=== PATIENT | male | born 1980 | race African-American/Black ===

== ENCOUNTER 2017-10-16 11:47 | Inpatient (IN) | payer SELFPAY ==
[~2017-10-16] VITALS: Ht 177.8 cm; Wt 78.8 kg
[~2017-10-16 11:47] MED LIST: HYDROCODONE-APA1 TAB PO; PANCRELIPASE 51 EACH PO; PROTONIX40 MG PO; ZOFRAN4 MG PO
[2017-10-16 13:17] LABS: BASOPHILS 0.1 % (0-2); EOSINOPHILS 0.7 % (0-7); HEMATOCRIT 40.7 % (42.0-54.0); HEMOGLOBIN 15.1 g/dL (13.5-17.5); IMMATURE GRANULOCYTES 0.4 % (0-5); LYMPHOCYTES 8.9 % (15-50); MCH 30.6 pg (26.0-34.0); MCHC 37.1 g/dL (31.0-37.0); MCV 82.6 fL (80.0-100.0); MEAN PLATELET VOLUME 9.1 fL (7.4-10.4); MONOCYTES 7.4 % (2-11); NEUTROPHILS 82.5 % (40-80); PLATELET COUNT 288 10x3/uL (130-400); RBC 4.93 10x6/uL (4.20-6.10); RDW 13.3 % (11.5-14.5); WBC 10.2 10x3/uL (4.8-10.8)
[2017-10-16 13:26] LABS: INR 1.13 (0.85-1.17)
[2017-10-16 13:34] LABS: ALBUMIN 4.2 g/dL (3.4-5.0); ALKALINE PHOSPHATASE 82 U/L (46-116); ALT (SGPT) 29 U/L (10-68); AMYLASE - SERUM 48 U/L (25-115); BILIRUBIN - TOTAL 0.73 mg/dL (0.2-1.3); CALC OSMOLALITY 285 mosm/kg (275-300); CALCIUM 8.8 mg/dL (8.5-10.1); CARBON DIOXIDE 32.7 mmol/L (21.0-32.0); CHLORIDE - SERUM 104 mmol/L (98-107); CREATININE - SERUM 1.2 mg/dL (0.6-1.3); GLUCOSE 97 mg/dL (74-106); LIPASE 107 U/L (73-393); MAGNESIUM - SERUM 1.8 mg/dL (1.8-2.4); POTASSIUM - SERUM 3.2 mmol/L (3.5-5.1); PROTEIN - SERUM 7.8 g/dL (6.4-8.2); SODIUM 144 mmol/L (136-145); UREA NITROGEN 11 mg/dL (7-18); eGFR NON AFRICAN AMERICAN 72 mL/min (90-120)
[2017-10-16 13:35] LABS: C-REACTIVE PROTEIN < 0.2 mg/dL (0.0-0.9)
[2017-10-16 15:48] LABS: APPEARANCE CLEAR (CLEAR); BILIRUBIN 1+ (NEGATIVE); COLOR YELLOW (YELLOW); GLUCOSE NEGATIVE (NEGATIVE); KETONE SMALL mg/dL (NEGATIVE); NITRITE NEGATIVE (NEGATIVE); PROTEIN TRACE mg/dL (NEGATIVE); SPECIFIC GRAVITY 1.015 (1.005-1.020)
[2017-10-16 15:49] LABS: WHITE CELLS - URINE 0-5 /hpf (0-5)
[2017-10-16 15:50] LABS: BACTERIA FEW /hpf (NONE SEEN); CALCIUM OXALATE CRYSTALS 0-5 /hpf (NONE SEEN); MUCUS <1+ /lpf (NONE SEEN); RED CELLS - URINE 0-5 /hpf (0-5)
[2017-10-16 18:33] LABS: UDS - AMPHET NEGATIVE QUAL (NEGATIVE); UDS - BARB NEGATIVE QUAL (NEGATIVE); UDS - BENZO NEGATIVE QUAL (NEGATIVE); UDS - COCAINE NEGATIVE QUAL (NEGATIVE); UDS - OPIATE POSITIVE QUAL (NEGATIVE); UDS - PCP NEGATIVE QUAL (NEGATIVE); UDS - THC POSITIVE QUAL (NEGATIVE)
[2017-10-16 22:48] VITALS: BP 127/77; BMI 27.3
[2017-10-17 01:35] VITALS: BP 139/88
[2017-10-17 05:06] LABS: BASOPHILS 0 % (0-2); EOSINOPHILS 0 % (0-7); HEMATOCRIT 37.8 % (42.0-54.0); HEMOGLOBIN 13.9 g/dL (13.5-17.5); IMMATURE GRANULOCYTES 0.3 % (0-5); MCHC 36.8 g/dL (31.0-37.0); MCV 81.5 fL (80.0-100.0); MEAN PLATELET VOLUME 9.5 fL (7.4-10.4); MONOCYTES 8.8 % (2-11); NEUTROPHILS 82.9 % (40-80); PLATELET COUNT 261 10x3/uL (130-400); RBC 4.64 10x6/uL (4.20-6.10); RDW 13.5 % (11.5-14.5)
[2017-10-17 05:26] LABS: WBC 7.4 10x3/uL (4.8-10.8)
[2017-10-17 05:50] VITALS: BP 153/78
[2017-10-17 06:22] LABS: ANION GAP 16.8 mmol/L (8-16); CALCIUM 8.4 mg/dL (8.5-10.1); CARBON DIOXIDE 26.5 mmol/L (21.0-32.0); CREATININE - SERUM 1.2 mg/dL (0.6-1.3); MAGNESIUM - SERUM 1.7 mg/dL (1.8-2.4); PHOSPHOROUS 2.9 mg/dL (2.5-4.9); POTASSIUM - SERUM 3.3 mmol/L (3.5-5.1)
[2017-10-17 08:25] VITALS: BP 102/53
[2017-10-17 09:32] VITALS: Ht 177.8 cm; Wt 78.8 kg
[2017-10-17 15:53] VITALS: BP 163/80
[2017-10-17 20:34] VITALS: BP 119/64
[2017-10-18 01:31] VITALS: BP 111/75
[2017-10-18 05:43] VITALS: BP 158/89
[2017-10-18 06:48] LABS: BASOPHILS 0.1 % (0-2); EOSINOPHILS 0 % (0-7); HEMATOCRIT 37.9 % (42.0-54.0); IMMATURE GRANULOCYTES 0.2 % (0-5); LYMPHOCYTES 9.5 % (15-50); MCH 30.2 pg (26.0-34.0); MCHC 36.9 g/dL (31.0-37.0); MCV 81.9 fL (80.0-100.0); MEAN PLATELET VOLUME 9.1 fL (7.4-10.4); MONOCYTES 9.8 % (2-11); NEUTROPHILS 80.4 % (40-80); PLATELET COUNT 237 10x3/uL (130-400); RBC 4.63 10x6/uL (4.20-6.10); RDW 13.4 % (11.5-14.5)
[2017-10-18 07:37] LABS: ALBUMIN 3.6 g/dL (3.4-5.0); ALKALINE PHOSPHATASE 67 U/L (46-116); ALT (SGPT) 25 U/L (10-68); CALC OSMOLALITY 280 mosm/kg (275-300); CARBON DIOXIDE 25.5 mmol/L (21.0-32.0); CHLORIDE - SERUM 106 mmol/L (98-107); CREATININE - SERUM 1.1 mg/dL (0.6-1.3); GLUCOSE 98 mg/dL (74-106); PROTEIN - SERUM 6.6 g/dL (6.4-8.2); SODIUM 141 mmol/L (136-145); UREA NITROGEN 12 mg/dL (7-18); eGFR NON AFRICAN AMERICAN 80 mL/min (90-120)
[2017-10-18 10:02] VITALS: BP 149/95
[2017-10-18 13:18] VITALS: BP 169/103
[2017-10-18 20:00] VITALS: BP 126/73
[2017-10-19 04:00] VITALS: BP 147/93
[2017-10-19 08:53] VITALS: BP 146/96
[2017-10-19 20:00] VITALS: BP 142/109
[2017-10-20] VITALS: BP 138/88
[2017-10-20 04:00] VITALS: BP 147/101
[2017-10-20 05:25] LABS: BASOPHILS 0.1 % (0-2); EOSINOPHILS 0.3 % (0-7); HEMATOCRIT 40.9 % (42.0-54.0); HEMOGLOBIN 15.4 g/dL (13.5-17.5); IMMATURE GRANULOCYTES 0.2 % (0-5); LYMPHOCYTES 16.2 % (15-50); MCH 30.3 pg (26.0-34.0); MCHC 37.7 g/dL (31.0-37.0); MCV 80.5 fL (80.0-100.0); MEAN PLATELET VOLUME 9.5 fL (7.4-10.4); MONOCYTES 14.3 % (2-11); NEUTROPHILS 68.9 % (40-80); PLATELET COUNT 232 10x3/uL (130-400); RBC 5.08 10x6/uL (4.20-6.10); RDW 12.8 % (11.5-14.5); WBC 10.8 10x3/uL (4.8-10.8)
[2017-10-20 05:45] LABS: CALC OSMOLALITY 271 mosm/kg (275-300); CALCIUM 7.9 mg/dL (8.5-10.1); CARBON DIOXIDE 24.7 mmol/L (21.0-32.0); CHLORIDE - SERUM 103 mmol/L (98-107); GLUCOSE 85 mg/dL (74-106); SODIUM 137 mmol/L (136-145); UREA NITROGEN 11 mg/dL (7-18)
[2017-10-20 05:55] LABS: CREATININE - SERUM 0.8 mg/dL (0.6-1.3); POTASSIUM - SERUM 3.3 mmol/L (3.5-5.1); eGFR NON AFRICAN AMERICAN > 90 mL/min (90-120)
[2017-10-20 07:59] VITALS: BP 161/112
[2017-10-20 11:48] VITALS: BP 148/101
[2017-10-20] MEDS ORDERED: NICODERM C1 PATCH .3 TRANSDERM ×2 (14:18→18:03)
[2017-10-20] MEDS ORDERED: PREVPAC PA1 COMB.PKG PO ×2 (18:01→18:13)
[2017-10-20] MEDS ORDERED: REGLAN5 MG PO ×2 (18:01→18:12)
== END 2017-10-20 18:38 | disposition home or self-care (01) | DRG 896 ==
LOC: D.ER 11:47 → D.EDHOLD 21:22 → D.M2 21:22
PROVIDERS: Emergency Medicine; Family Medicine; Internal Medicine Gastroenterology; Internal Medicine Nephrology; Nurse Practitioner Family
PROC: 0DB78ZX Excision of Stomach, Pylorus, Via Natural or Artificial Opening Endoscopic, Diagnostic (ICD-10-PCS; 2017-10-17)
PROC: 0DB58ZX Excision of Esophagus, Via Natural or Artificial Opening Endoscopic, Diagnostic (ICD-10-PCS; 2017-10-17)
PROC: 0DB98ZX Excision of Duodenum, Via Natural or Artificial Opening Endoscopic, Diagnostic (ICD-10-PCS; principal; 2017-10-17 10:46)
DX: F12.988 Cannabis use, unspecified with other cannabis-induced disorder (principal); K29.01 Acute gastritis with bleeding; K31.84 Gastroparesis; F17.203 Nicotine dependence unspecified, with withdrawal; G43.A0 Cyclical vomiting, in migraine, not intractable; K44.9 Diaphragmatic hernia without obstruction or gangrene; K76.89 Other specified diseases of liver; E87.6 Hypokalemia; K29.80 Duodenitis without bleeding; K21.0 Gastro-esophageal reflux disease with esophagitis; B96.81 Helicobacter pylori [H. pylori] as the cause of diseases classified elsewhere

== ENCOUNTER 2018-09-23 06:22 | Emergency (ER) | payer SELFPAY ==
[~2018-09-23] VITALS: Ht 177.8 cm; Wt 79.5 kg
[~2018-09-23 06:22] MED LIST changes: +NICODERM C1 PATCH .3 TRANSDERM; +PREVPAC PA1 COMB.PKG PO; +REGLAN5 MG PO
[2018-09-23 06:28] VITALS: Ht 177.8 cm; Wt 79.5 kg
[2018-09-23 07:09] LABS: ALBUMIN 3.9 g/dL (3.4-5.0); ALKALINE PHOSPHATASE 80 U/L (46-116); ALT (SGPT) 19 U/L (10-68); AMYLASE - SERUM 49 U/L (25-115); BILIRUBIN - TOTAL 0.54 mg/dL (0.2-1.3); CALC OSMOLALITY 281 mosm/kg (275-300); CARBON DIOXIDE 29.7 mmol/L (21.0-32.0); CHLORIDE - SERUM 104 mmol/L (98-107); CREATININE - SERUM 1.2 mg/dL (0.6-1.3); GLUCOSE 97 mg/dL (74-106); LIPASE 147 U/L (73-393); POTASSIUM - SERUM 3.5 mmol/L (3.5-5.1); PROTEIN - SERUM 7.4 g/dL (6.4-8.2); SODIUM 141 mmol/L (136-145); UREA NITROGEN 14 mg/dL (7-18); eGFR NON AFRICAN AMERICAN 72 mL/min (90-120)
[2018-09-23 07:12] LABS: TROPONIN-I < 0.017 ng/mL (0.000-0.060)
[2018-09-23 07:15] LABS: CALCIUM 8.6 mg/dL (8.5-10.1)
[2018-09-23 07:29] LABS: BASOPHILS 0.3 % (0-2); EOSINOPHILS 3.2 % (0-7); HEMATOCRIT 40.2 % (42.0-54.0); HEMOGLOBIN 15.3 g/dL (13.5-17.5); IMMATURE GRANULOCYTES 0.1 % (0-5); LYMPHOCYTES 32.1 % (15-50); MCH 31.3 pg (26.0-34.0); MCHC 38.1 g/dL (31.0-37.0); MCV 82.2 fL (80.0-100.0); MEAN PLATELET VOLUME 9.3 fL (7.4-10.4); NEUTROPHILS 53.3 % (40-80); RBC 4.89 10x6/uL (4.20-6.10); RDW 13.9 % (11.5-14.5); WBC 7.2 10x3/uL (4.8-10.8)
[2018-09-23 07:31] LABS: PLATELET COUNT 294 10x3/uL (130-400)
[2018-09-23] MEDS ORDERED: ZANTAC300 MG PO (08:37)
[2018-09-23] MEDS ORDERED: ZOFRAN ODT4 MG/UDTAB PO (08:37)
[2018-09-23] MEDS ORDERED: LEVSIN/ANASP0.125 MG PO (08:37)
[2018-09-23 10:03] VITALS: BP 165/89
== END 2018-09-23 09:56 | disposition home or self-care (01) ==
LOC: D.ER 06:22
PROVIDERS: Emergency Medicine
DX: R11.2 Nausea with vomiting, unspecified (principal); R10.12 Left upper quadrant pain; B34.9 Viral infection, unspecified